=== PATIENT | female | born 1955 | race Caucasian/White ===

== ENCOUNTER 2023-11-12 14:41 | Emergency (ER) | payer OTHER, SELFPAY ==
--- NOTE | ~2023-11-12 | XR_ITS ---
EXAM: XR hand RT min 3V DATE: 11/12/2023 17:59 HISTORY: pain at base of 1st metacaral . COMPARISON: None available. FINDINGS: Decreased mineralization. No fracture or dislocation. No lytic or blastic lesion. Scattere d mild degenerative changes typical of osteoarthritis, with erosive appearing change in the second DI P joint. No erosion or periosteal change. Soft tissues within normal limits. 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 No acute osseous finding in the right hand. Reviewed, dictated and finalized at location 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 No acute osseous finding in the right hand.
[2023-11-12 14:43] VITALS: BP 134/43; PULSE 82; RESP 20; TEMP 36.6; O2SAT 97
--- NOTE | 2023-11-12 18:46 | ED.UPPEXIN ---
HPI - Extremity Injury (Upper) General Chief Complaint: Extremity Injury, Upper Stated Complaint: hand injury at work Time Seen by Provider: 11/12/23 17:36 History of Present Illness HPI narrative: Patient is a 67-year-old female who presents ER with pain to the right thumb. 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 She has had pain for last couple days and has been wanting to get evaluated. No swelling. No numbness or tingling. She maintains normal range of motion. She does have some swelling to the proximal aspect of her right thumb. Review of Systems Musculoskeletal: Musculoskeletal: Reports arthralgias, Reports joint swelling and Denies muscle cramps Integumentary/Breasts: Skin/Breast: Denies erythema and Denies rash Neurologic: Denies numbness and Denies weakness PMFSH Past Medical History Medical History (Updated 11/12/23 @ 21:49 by Dewayne Batres MD) No pertinent past medical history Exam Narrative: GENERAL: Well-appearing, well-nourished, and in no acute distress. HEAD: Normocephalic, atraumatic. HEART: Regular rate and rhythm. Normal peripheral pulses. EXTREMITIES: Mild tenderness proximal aspect of the right thumb over the metacarpal is meeting the wrist. No redness. Range of motion and strength preserved. SKIN: Warm, dry, no rash. NEURO: Alert and oriented x3. PSYCH: Normal mood and affect. Course Course Emergency Course: Patient resting comfortably. Informed of results. Patient expressed frustration about not having her worker's compensation paperwork filled out. Discussed with her to see his worker's comp physician or her primary care physician as we do not have continuity with patient's or a contract with her facility. Discharge home. Vital Signs Vital signs: Vital Signs Temperature 97.9 F 11/12/23 14:43 Pulse Rate 82 11/12/23 14:43 Respiratory Rate 20 11/12/23 14:43 Blood Pressure 134/43 L 11/12/23 14:43 Pulse Oximetry 97 11/12/23 14:43 Oxygen Delivery Room Air 11/12/23 14:43 Temperature 97.9 F 11/12/23 14:43 Pulse Rate 82 12/21/23 14:43 Respiratory Rate 20 11/12/23 14:43 Blood Pressure 134/43 L 11/12/23 14:43 Pulse Oximetry 97 11/12/23 14:43 Oxygen Delivery Room Air 11/12/23 14:43 MDM - Extremity Injury (Upper) Imaging Data Radiologist's impression: ITS Impressions Hand X-Ray 11/12/23 18:11 IMPRESSION: Polyarticular osteoarthritis, 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 No acute osseous finding in the right hand. Discharge Plan Discharge Clinical Impression: Sprain of thumb Patient Disposition: Home, Self-Care Condition: Stable Instructions: Finger Sprain (ED) Additional Instructions: Take Tylenol or ibuprofen as needed for pain. You may ice the area as well. There is no fracture. Follow-up/Referrals: PHYSICIAN NOT ON STAFF,NONSTAFF [Primary Care Provider] - 1 Week
== END 2023-11-12 19:10 | disposition home or self-care (01) ==
PROVIDERS: Emergency Provider Emergency Medicine
DX: S63.601A Unspecified sprain of right thumb, initial encounter (principal); M19.041 Primary osteoarthritis, right hand; W22.8XXA Striking against or struck by other objects, initial encounter
CPT/HCPCS: 73130; 99283